=== PATIENT | male | born 1960 | race Caucasian/White ===

== ENCOUNTER 2016-07-29 08:10 | Day surgery (SDC) | payer MEDICAID ==
[2016-07-29] MEDS ORDERED: LR 1,000 ML IV ONE (08:22)
[2016-07-29] MEDS ORDERED: LIDOCAINE 1% 5 ML SDV ID PRN (08:22)
[2016-07-29] MEDS ORDERED: PROPOFOL/EMULSION 500 MG/50 ML BOTTLE IV ONE (09:39)
[2016-07-29] MEDS ORDERED: PROPOFOL 200 MG/20 ML VIAL ONE (09:57)
--- NOTE | 2016-08-01 15:54 | GPN ---
[f rep st] PROCEDURE NOTE DATE OF PROCEDURE: 07/29/2016 POSTPROCEDURE DIAGNOSIS: Colon polyp. PROCEDURE: Colonoscopy with biopsy, colonoscopy with snare. MEDICATIONS: Monitored anesthesia care. INDICATIONS: The patient is a 55-year-old gentleman presenting for screening colonoscopy. The risk s and benefits of the procedure were discussed with the patient and consent obtained. The risks inc lude, but are not limited to, bleeding, perforation, risks of anesthesia. The patient is ASA class 2. DESCRIPTION OF PROCEDURE: The adult colonoscope was advanced into the terminal ileum which appeared normal. The appendiceal orifice was normal. There was a 2 mm polyp in the cecum, which was remove d using cold biopsy forceps and sent off to pathology. The ascending colon showed a 4 mm polyp whic h was removed using cold snare and polypectomy and sent to pathology. The descending colon showed 3 polyps, ranging in size from 5-8 mm which were removed using cold snare and polypectomy. A single hemoclip was placed over the larger polypectomy site to prevent bleeding. In the sigmoid colon, the re was a 1 cm semipedunculated polyp, which was removed using cold snare. Two hemoclips were placed over the site to close the defect. Retroflexed views in the rectum were normal. IMPRESSION: Colon polyps, status post removal. RECOMMENDATION: 1. Discharge home with escort. 2. Advance diet as tolerated. 3. Followup pathology results. Results available within 10 days. 4. Repeat colonoscopy based on pathology results. If 3 or more polyps are found to be adenomatous, a repeat colonoscopy in 3 years is recommended or if the sigmoid colon polyp is found to be adenoma tous, a 3-year followup recommended. If more than 3 polyps are adenomatous, recommend a 5-year foll owup. Thank you for allowing me to participate in the care of your patient. Please do hesitate to call co th questions. /[id number]/MODL
== END 2016-07-29 11:34 | disposition home or self-care (01) ==
LOC: FSGY 08:10
PROVIDERS: ATTEND Internal Medicine Gastroenterology
PROC: 0DBM8ZX Excision of Descending Colon, Via Natural or Artificial Opening Endoscopic, Diagnostic (ICD-10-PCS; principal; 2016-07-29 10:15)
PROC: 0DBK8ZX Excision of Ascending Colon, Via Natural or Artificial Opening Endoscopic, Diagnostic (ICD-10-PCS; principal; 2016-07-29 10:15)
PROC: 0DBH8ZX Excision of Cecum, Via Natural or Artificial Opening Endoscopic, Diagnostic (ICD-10-PCS; principal; 2016-07-29 10:15)
PROC: 0DBN8ZX Excision of Sigmoid Colon, Via Natural or Artificial Opening Endoscopic, Diagnostic (ICD-10-PCS; principal; 2016-07-29 10:15)
PROC: 0DJD8ZZ Inspection of Lower Intestinal Tract, Via Natural or Artificial Opening Endoscopic (ICD-10-PCS; principal; 2016-07-29 10:15)
DX: Z12.11 Encounter for screening for malignant neoplasm of colon (principal); K63.5 Polyp of colon; D12.2 Benign neoplasm of ascending colon; D12.4 Benign neoplasm of descending colon; D12.5 Benign neoplasm of sigmoid colon; F32.9 Major depressive disorder, single episode, unspecified
CPT/HCPCS: J2704

== ENCOUNTER 2016-09-11 11:44 | Emergency (ER) | payer MEDICAID ==
[2016-09-11 12:05] VITALS: TEMP 98.8
[2016-09-11] MEDS ORDERED: OXYCODONE/APAP 5/325 TAB PO ONE (12:18)
--- NOTE | 2016-09-11 12:22 | EDPHY ---
H & P Stated Complaint: Twisted L knee yesterday. HPI/ROS: CHIEF COMPLAINT: Left knee pain HISTORY OF PRESENT ILLNESS: Patient was riding his horse yesterday when he fell off the left side of it. Describes this as approximately 4 foot high pony. He landed on his left leg awkwardly. He describes a valgus injury to the left knee. Sudden onset of pain in the medial left knee. No head neck injury. No loss of consciousness. No chest or back pain. No abdominal pain. No injury to the right leg greater either arm. Pain was mild to moderate REVIEW OF SYSTEMS: Ten systems reviewed and are negative unless otherwise noted in the HPI EXAMINATION General Appearance: Alert, no distress Cardiovascular: Pulses normal throughout. Symmetric DP and PT pulses. Brisk cap refill Neurological: A&O, sensory symmetric, strength symmetric. Normal proprioception great toe Skin: Warm and dry, no rash. No ecchymosis. Extremities: Left lower extremity: Tenderness and edema to the left knee. There is no ecchymosis. No laceration or abrasion. Range of motion is intact but painful. There is pain with valgus stress but no laxity. Negative drawer test. Neurovascular intact distal to the injury. Psychiatric: Mood and affect normal DIFFERENTIAL DIAGNOSES: Including but not limited to sprain, strain, fracture, dislocation, fracture dislocation MDM: 12:20 p.m. Acute sprain left knee. The pain is more medial than central. X-ray has been ordered. He is neurovascular intact distally ED Precautions: Worsening pain. Erythema, edema, cyanosis, pallor, paresthesia or anesthesia. SUPERVISION: This patient was independently evaluated without direct examination by the attending physician. Case was discussed with attending physician. Source: Patient Exam Limitations: No limitations - Personal History Current Tetanus Diphtheria and Acellular Pertussis (TDAP): Yes - Medical/Surgical History Hx Diabetes: No Other PMH: neg per pt - Social History Smoking Status: Current every day smoker Constitutional: Initial Vital Signs Temperature (C) 98.8 F 09/11/16 12:00 Heart Rate 98 09/11/16 12:00 Respiratory Rate 18 09/11/16 12:00 Blood Pressure 109/70 09/11/16 12:00 O2 Sat (%) 93 09/11/16 12:00 O2 Delivery Mode Room Air Allergies/Adverse Reactions: Penicillins Allergy (Verified 09/11/16 12:02) Swelling/neck,face,throat Home Medications: Medication Instructions Recorded Prozac 10 MG (*) 07/25/16 Hydrocodone/APAP 5/325 [[place] 1 - 2 tab PO Q4H PRN #10 tab 09/11/16 5/325 (*)] Medical Decision Making - Diagnostics Imaging Results: Imaging Impressions Knee X-Ray 09/11/16 12:12 Impression: Mild degenerative changes, with no acute osseous abnormality identified. If there is continuing clinical concern regarding the patient's knee pain, consider MR imaging. - Data Points Medications Given: Discontinued Medications Oxycodone/Acetaminophen (Percocet 5/325) 1 tab PO EDNOW ONE Stop: 09/11/16 12:19 Last Admin: 09/11/16 12:26 Dose: 1 tab Departure - Departure Disposition: Home, Routine, Self-Care Clinical Impression: Left knee sprain Qualifiers: Encounter type: initial encounter Involved ligament of knee: medial collateral ligament Qualified Code(s): S83.412A - Sprain of medial collateral ligament of left knee, initial encounter Condition: Good Instructions: Knee Sprain (ED) Additional Instructions: Weightbearing as tolerated. Artie wrap and crutches as needed. Follow up with primary care physician and orthopedist. Return to the ER for worsening pain, swelling, numbness or tingling Referrals: Joanne Karimi PAC [Primary Care Provider] - As per Instructions Amelia Chu MD [Medical Doctor] - As per Instructions Prescriptions: Hydrocodone/APAP 5/325 [[place] 5/325 (*)] 1 - 2 tab PO Q4H PRN #10 tab PRN Reason: Pain, Moderate
[2016-09-11 13:21] VITALS: BP 125/82; PULSE 101; RESP 16; O2SAT 92
== END 2016-09-11 13:21 | disposition home or self-care (01) ==
DX: S83.412A Sprain of medial collateral ligament of left knee, initial encounter (principal); F17.200 Nicotine dependence, unspecified, uncomplicated; V80.010A Animal-rider injured by fall from or being thrown from horse in noncollision accident, initial encounter; Y99.8 Other external cause status; Y93.52 Activity, horseback riding

== ENCOUNTER → 2016-10-05 | Outpatient (CLI) | payer MEDICAID | LOC: FIMAGING 11:01 | PROVIDERS: ATTEND Physician Assistant | DX: S83.512A Sprain of anterior cruciate ligament of left knee, initial encounter (principal); S83.529A Sprain of posterior cruciate ligament of unspecified knee, initial encounter; S83.412A Sprain of medial collateral ligament of left knee, initial encounter; M21.862 Other specified acquired deformities of left lower leg; S83.282A Other tear of lateral meniscus, current injury, left knee, initial encounter; M25.462 Effusion, left knee ==

== ENCOUNTER 2016-11-14 08:40 | Emergency (ER) | payer MEDICAID ==
[2016-11-14 08:57] VITALS: RESP 18
[2016-11-14] MEDS ORDERED: ONDANSETRON 4 MG/2 ML VIAL ONE (09:18)
[2016-11-14] MEDS ORDERED: LORazepam 2 MG/ML INJ ONE (09:18)
[2016-11-14] MEDS ORDERED: ONDANSETRON 4 MG/2 ML VIAL IVP ONE (09:25)
[2016-11-14] MEDS ORDERED: LORazepam 2 MG/ML INJ IVP ONE ×2 (09:25→11:06)
[2016-11-14] MEDS ORDERED: NS 1,000 ML IV ONE ×2 (09:25→11:06)
[2016-11-14 09:29] LABS: % IMMATURE GRANULYOCYTES 0.4 % (0.0-1.1); ABSOLUTE IMMATURE GRANULOCYTES 0.04 10^3/uL (0.00-0.10); ADD DIFF? NO; ADD MORPH? NO; ADD SCAN? NO; ATYPICAL LYMPHOCYTE FLAG 0 (0-99); FRAGMENT RBC FLAG 0 (0-99); HEMATOCRIT 45.1 % (40.0-51.0); LEFT SHIFT FLG 0 (0-99); LIPEMIA HEMOLYSIS FLAG 90 (0-99); MEAN CELL HEMOGLOBIN 33.1 pg (27.9-34.1); MEAN CELL HEMOGLOBIN CONCENTR. 35.5 g/dL (32.4-36.7); MEAN CELL VOLUME 93.4 fL (81.5-99.8); MEAN PLATELET VOLUME 11.1 fL (8.7-11.7); PLATELET CLUMPS FLAG 0 (0-99); PLATELET COUNT 145 10^3/uL (150-400); RED BLOOD CELL COUNT 4.83 10^6/uL (4.40-6.38); RED CELL DISTRIBUTION WIDTH 11.9 % (11.5-15.2)
--- NOTE | 2016-11-14 09:32 | CPEKG ---
Heart Rate: 89 RR Interval: 674 P-R Interval: 152 QRSD Interval: 84 QT Interval: 380 QTC Interval: 463 P [place]: 27 QRS [place]: -31 T Wave [place]: 37 EKG Severity - ABNORMAL ECG - EKG Impression: PACEMAKER SPIKES OR ARTIFACTS EKG Impression: SINUS RHYTHM EKG Impression: LEFT AXIS DEVIATION Electronically Signed By: Segundo Garner 17-Nov-2016 14:57:55
[2016-11-14 09:39] LABS: ALANINE AMINOTRANSFERASE 46 IU/L (21-72); ALBUMIN 4.7 g/dL (3.5-5.0); ALKALINE PHOSPHATASE 76 IU/L (38-126); ASPARTATE AMINOTRANSFERASE 46 IU/L (17-59); BILIRUBIN-CONJUGATED 0.3 mg/dL (0.0-0.5); BILIRUBIN-UNCONJUGATED 0.7 mg/dL (0.0-1.1); CALCIUM 9.8 mg/dL (8.5-10.4); CARBON DIOXIDE 16 mEq/l (22-31); CHLORIDE 103 mEq/L (97-110); GLOMERULAR FILTRATION RATE > 60; GLUCOSE 83 mg/dL (70-100); SODIUM 142 mEq/L (134-144); TOTAL PROTEIN 7.5 g/dL (6.3-8.2)
[2016-11-14 09:45] LABS: ANION GAP 23 mEq/L (8-16); POTASSIUM 3.9 mEq/L (3.5-5.2)
[2016-11-14 09:51] LABS: TROPONIN I < 0.012 ng/mL (0-0.034)
--- NOTE | 2016-11-14 10:02 | EDPHY ---
HPI/HX/ROS/PE/MDM Narrative: CHIEF COMPLAINT: Nausea, vomiting, shakiness. HISTORY OF PRESENT ILLNESS: This patient 56 year old male complaining of nausea, vomiting, and shakiness onset yesterday. He endorses chest tightness as well, constant and beginning around midnight. He states this pain is not increased with deep inspiration, and has not noted any specific provocation or palliation. He endorses subjective fever. He states he has been attempting to sip water, but has not taken medications for symptom prevention. He denies hematemesis, diarrhea, or abdominal pain. No history of heartburn, cardiac issues, abdominal surgeries, pancreatitis, or diabetes. No shortness of breath, palpitations, vomiting, urinary complaints, headache, lightheadedness. REVIEW OF SYSTEMS: Aside from elements discussed in the HPI, a comprehensive 10-point review of systems was reviewed and is negative. PAST MEDICAL HISTORY: Denies SOCIAL HISTORY: Former smoker, quit one month ago. Regular alcohol use. No illicit drug use. VITAL SIGNS: Reviewed by me GENERAL: Tremorous. Well-developed, well-nourished, resting comfortably in no respiratory distress. HEENT: Atraumatic. Eyes: No icterus, no injection. Mouth: tongue fasciculations. moist mucous membranes. No erythema or lesions. Neck: supple with no adenopathy. LUNGS: Clear to auscultation bilaterally, no wheezes, rhonchi or rales. CARDIAC: Regular rate and rhythm, no rubs, murmurs or gallops. ABDOMEN: No epigastric tenderness, no RLQ or RUQ tenderness. Soft, nontender, nondistended, bowel sounds normal. BACK: No CVA tenderness. EXTREMITIES: Swelling to posterior aspect of left forearm. No trauma. No edema. Range of motion is normal throughout. NEURO: Alert and oriented, grossly nonfocal. SKIN: Warm and dry, no rash. PSYCHIATRIC: Normal mentation, no agitation. Portions of this note were transcribed by a medical lab scientist. I personally performed a history, physical exam, medical decision making, and confirmed accuracy of information the transcribed note. ED Course: This patient is a 56 year old male presenting with one day history of nausea, vomiting, and shakiness. On exam, he is quite tremulous. Physical exam is unremarkable, notably no epigastric tenderness, right upper or lower abdominal tenderness. IV Established. Plan to administer 1L IV NS, 4mg IV Zofran, 1mg IV Ativan for symptom relief. Plan for chest x-ray, labs including CBC, BMP, Troponin, liver and lipase. Patient is dehydrated, anion gap 23. Chest x-ray shows no pneumothorax, consolidation, or effusion. Possible mild amount of atelectasis in the right lung base. Re-examination 11:00 a.m.: Patient reports the nausea has improved. His tremors have diminished although they are still present. He patient still has slight amount of tongue fasciculation. He believes this may be related to alcohol withdrawal. Patient received a 2nd L of normal saline as well as Librium and another dose of Ativan. Plan originally was to discharge to the to [facility]. However, after further treatment in the emergency department the patient reports feeling improved and wishes to be discharged home. I believe he is safe to be discharged. Patient's family is present and will accompany him to home. MDM: Differential diagnosis of the patient's nausea and vomiting was considered including but not limited to gastroenteritis, gastritis, alcohol intoxication, withdrawal symptoms, intraabdominal processes including appendicitis, pancreatitis, bowel obstruction and medication side effect. - Data Points Imaging: I viewed and interpreted images myself Laboratory Results: Laboratory Results 11/14/16 09:10 11/14/16 09:10 Medications Given: Discontinued Medications Chlordiazepoxide HCl (Librium) 25 mg PO EDNOW ONE Stop: 11/14/16 11:06 Last Admin: 11/14/16 11:20 Dose: 25 mg Sodium Chloride (Ns) 1,000 mls @ 0 mls/hr IV ONCE ONE PRN Reason: Wide Open Stop: 11/14/16 09:26 Last Admin: 11/14/16 09:26 Dose: 1,000 mls Sodium Chloride (Ns) 1,000 mls @ 0 mls/hr IV ONCE ONE; Wide Open PRN Reason: Protocol Stop: 11/14/16 11:07 Last Admin: 11/14/16 11:20 Dose: 1,000 mls Lorazepam (Ativan Injection) 1 mg IVP EDNOW ONE Stop: 11/14/16 09:26 Last Admin: 11/14/16 09:26 Dose: 1 mg Lorazepam (Ativan Injection) 1 mg IVP EDNOW ONE Stop: 11/14/16 11:07 Last Admin: 11/14/16 11:20 Dose: 1 mg Ondansetron HCl (Zofran) 4 mg IVP EDNOW ONE Stop: 11/14/16 09:26 Last Admin: 11/14/16 09:26 Dose: 4 mg General Time Seen by Provider: 11/14/16 09:02 Initial Vital Signs: Initial Vital Signs Temperature (C) 36.7 C 11/14/16 08:50 Heart Rate 100 11/14/16 08:50 Respiratory Rate 18 11/14/16 08:50 Blood Pressure 140/96 H 11/14/16 08:50 O2 Sat (%) 97 11/14/16 08:50 O2 Delivery Mode Room Air Allergies/Adverse Reactions: Penicillins Allergy (Severe, Verified 11/14/16 08:53) Swelling/neck,face,throat Home Medications: Medication Instructions Recorded Prozac 10 MG (*) 07/25/16 Ondansetron Odt [Zofran Odt 4 mg 4 mg PO Q6 PRN #8 tab 11/14/16 (RX)] Departure - Departure Disposition: Home, Routine, Self-Care Clinical Impression: Presumed alcohol withdrawal Nausea & vomiting Qualifiers: Vomiting type: unspecified Vomiting Intractability: non-intractable Qualified Code(s): R11.2 - Nausea with vomiting, unspecified Condition: Good Instructions: Acute Nausea and Vomiting (ED), Alcohol Withdrawal (ED) Additional Instructions: Please do not drink alcohol in excessive quantities. Some of your nausea and vomiting may be due to alcohol withdrawal. For your nausea and vomiting, I suggested you start with a bland diet and advance as tolerated. This means start with clear liquids such as water, Gatorade, juice, flat non- caffeinated soda. If you tolerate clear liquids, then you may add bland foods such as bananas, rice, or toast. If you do not have any worsening of your symptoms, you may begin to resume a regular diet. You may use Zofran as needed for recurrent nausea and vomiting. Please follow up with your primary care physician or seek care urgently if your symptoms are not improving as expected. Referrals: Joanne Karimi, PAC [Primary Care Provider] - As per Instructions Prescriptions: Ondansetron Odt [Zofran Odt 4 mg (RX)] 4 mg PO Q6 PRN #8 tab PRN Reason: Nausea Report Scribed for: Poornima Blankenship Report Scribed by: Kristie Haywood Date of Report: 11/14/16 Time of Report: 10:27
[2016-11-14] MEDS ORDERED: chlordiazePOXIDE 25 MG CAP PO ONE (11:05)
[2016-11-14 12:41] VITALS: BP 172/113; PULSE 98; TEMP 99; O2SAT 93
== END 2016-11-14 12:55 | disposition home or self-care (01) ==
DX: R11.2 Nausea with vomiting, unspecified (principal); Z87.891 Personal history of nicotine dependence
CPT/HCPCS: 96374; J2060; J2405

== ENCOUNTER 2017-01-27 07:50 | Emergency (ER) | payer MEDICAID ==
[2017-01-27 07:59] VITALS: TEMP 97.5
[2017-01-27] MEDS ORDERED: NS 1,000 ML IV ONE (08:32)
[2017-01-27] MEDS ORDERED: MAG HYDROX/AL HYDROX/SIMETH 30 ML UDCUP PO ONE (08:32)
[2017-01-27] MEDS ORDERED: HYOSCYAMINE SULFATE 0.125 MG TAB PO ONE (08:32)
[2017-01-27] MEDS ORDERED: LIDOCAINE 2% VISCOUS 15 ML UDCUP PO ONE (08:32)
[2017-01-27] MEDS ORDERED: ONDANSETRON 4 MG/2 ML VIAL IVP ONE (08:32)
[2017-01-27] MEDS ORDERED: FAMOTIDINE 20 MG/NACL 50 ML IV ONE (08:32)
[2017-01-27] MEDS ORDERED: IOPAMIDOL (ISOVUE-300) 100 ML BTL ONE (08:37)
--- NOTE | 2017-01-27 08:41 | EDPHY ---
H & P Stated Complaint: Epigastric pain Time Seen by Provider: 01/27/17 08:27 HPI/ROS: CHIEF COMPLAINT: Epigastric pain HISTORY OF PRESENT ILLNESS: Patient is a 56-year-old man who comes to the emergency department complaining of burning and pain for the last 4 weeks. It radiates to his back. He denies chest pain or shortness of breath but states that it is uncomfortable to to take deep breath because of his epigastric pain. The pain is been constant. He reports having a food poisoning episode 1 month ago that resulted in epigastric pain and black stools for about a week. He states that the black stool resolved but he still has the epigastric pain. He has been taking ibuprofen and Aleve to alleviate his pain. REVIEW OF SYSTEMS: Constitutional: denies: chills, fever, recent illness, recent injury EENTM: denies: blurred vision, double vision, nose congestion Respiratory: denies: cough, shortness of breath Cardiac: denies: chest pain, irregular heart rate, lightheadedness, palpitations Gastrointestinal/Abdominal: See HPI Genitourinary: denies: dysuria, frequency, hematuria, pain Musculoskeletal: denies: joint pain, muscle pain Skin: denies: lesions, rash, jaundice, bruising Neurological: denies: headache, numbness, paresthesia, tingling, dizziness, weakness Hematologic/Lymphatic: denies: blood clots, easy bleeding, easy bruising Immunologic/allergic: denies: HIV/AIDS, transplant EXAM: GENERAL: Well-appearing, overweight and in no acute distress. HEAD: Atraumatic, normocephalic. EYES: Pupils equal round and reactive to light, extraocular movements intact, sclera anicteric, conjunctiva are normal. ENT: TMs normal, nares patent, oropharynx clear without exudates. Moist mucous membranes. NECK: Normal range of motion, supple without lymphadenopathy or JVD. LUNGS: Breath sounds clear to auscultation bilaterally and equal. No wheezes rales or rhonchi. HEART: Regular rate and rhythm without murmurs, rubs or gallops. ABDOMEN: Soft, nontender, normoactive bowel sounds. No guarding, no rebound. No masses appreciated. BACK: No CVA tenderness, no spinal tenderness, step-offs or deformities EXTREMITIES: Normal range of motion, no pitting or edema. No clubbing or cyanosis. NEUROLOGICAL: Cranial nerves II through XII grossly intact. Normal speech, normal gait. 5/5 strength, normal movement in all extremities, normal sensation PSYCH: Normal mood, normal affect. SKIN: Warm, dry, normal turgor, no visible rashes or lesions. Source: Patient Exam Limitations: No limitations - Personal History Current Tetanus/Diphtheria Vaccine: Yes - Medical/Surgical History Hx Asthma: No Hx Chronic Respiratory Disease: No Hx Diabetes: No Hx Cardiac Disease: No Hx Renal Disease: No Hx Cirrhosis: No Hx Alcoholism: No Hx HIV/AIDS: No Hx Splenectomy or Spleen Trauma: No Other PMH: depression - Family History Significant Family History: No pertinent family hx - Social History Smoking Status: Current every day smoker Alcohol Use: Sober Drug Use: None Constitutional: Initial Vital Signs Temperature (C) 36.4 C 01/27/17 07:56 Heart Rate 74 01/27/17 07:56 Respiratory Rate 20 01/27/17 07:56 Blood Pressure 124/97 H 01/27/17 07:56 O2 Sat (%) 100 01/27/17 07:56 O2 Delivery Mode Room Air O2 (L/minute) 36.5 Allergies/Adverse Reactions: Penicillins Allergy (Severe, Verified 01/27/17 07:55) Swelling/neck,face,throat Home Medications: Medication Instructions Recorded Prozac 10 MG (*) 07/25/16 Ondansetron Odt [Zofran Odt 4 mg 4 mg PO Q6 PRN #8 tab 11/14/16 (RX)] Famotidine [Pepcid] 40 mg PO HS #30 tablet 01/27/17 Medical Decision Making - Diagnostics EKG Interpretation: An EKG obtained and was read and documented in trace view. Please see trace view for full reading and report. Sinus rhythm, no acute ischemic changes, nonspecific T-wave inversions ED Course/Re-evaluation: 10:55 a.m. The patient feels completely better after GI cocktail. We discussed the CT results which are reassuring. He states that he does not eat a lot a barbecue. He confirms he has not had any abdominal surgeries. He is not sure what the foreign body and his sigmoid may be. His troponin was not done. I will add that on. I will consult surgery about the possible foreign body. His repeat abdominal exam is benign. 10:56 a.m. I discussed the foreign body with Dr. Suzanna Santos who recommends follow-up in her office and to watch to see if it passes. Also possibly follow up with GI. 12:20 p.m. the patient continues to feel completely better. His troponin is negative. I will discharge him with an acids and follow-up. He agrees with this plan. Discussed indications for returning. Differential Diagnosis: Partial list of the Differential diagnosis considered include but were not limited to; peptic ulcer disease, acute coronary disease and although unlikely based on the history and physical exam, I also considered PE, arrhythmia, obstruction, ischemia. I discussed these differential diagnoses and the plan with the patient as well as the usual and expected course. The patient understands that the diagnosis is provisional and that in medicine we are not always correct and that further workup is often warranted. Usual and customary warnings were given. All of the patient's questions were answered. The patient was instructed to return to the emergency department should the symptoms at all worsen or return, otherwise to followup with the physician as we discussed. - Data Points Laboratory Results: Laboratory Results 01/27/17 08:40 01/27/17 08:40 Medications Given: Discontinued Medications Al Hydroxide/Mg Hydroxide (Maalox Susp) 30 ml PO ONCE ONE Stop: 01/27/17 08:33 Last Admin: 01/27/17 09:09 Dose: 30 ml Hyoscyamine Sulfate (Levsin, Hyomax-Sl) 0.25 mg PO ONCE ONE Stop: 01/27/17 08:33 Last Admin: 01/27/17 09:08 Dose: 0.25 mg Sodium Chloride (Ns) 1,000 mls @ 0 mls/hr IV EDNOW ONE; Wide Open PRN Reason: Protocol Stop: 01/27/17 08:33 Last Admin: 01/27/17 09:09 Dose: 1,000 mls Famotidine/Sodium Chloride (Pepcid 20 Mg (Premix)) 50 mls @ 200 mls/hr IV EDNOW ONE Stop: 01/27/17 08:46 Last Admin: 01/27/17 09:08 Dose: 50 mls Lidocaine (Lidocaine 2% Viscous) 15 ml PO ONCE ONE Stop: 01/27/17 08:33 Last Admin: 01/27/17 09:09 Dose: 15 ml Ondansetron HCl (Zofran) 4 mg IVP EDNOW ONE Stop: 01/27/17 08:33 Last Admin: 01/27/17 09:08 Dose: 4 mg Departure - Departure Disposition: Home, Routine, Self-Care Clinical Impression: Peptic ulcer disease Condition: Fair Instructions: Peptic Ulcer (ED), Epigastric Pain (ED) Referrals: Joanne Karimi PAC [Primary Care Provider] - As per Instructions Suzanna Santos MD [Medical Doctor] - As per Instructions Prescriptions: Famotidine [Pepcid] 40 mg PO HS #30 tablet
--- NOTE | 2017-01-27 08:44 | CPEKG ---
Heart Rate: 72 RR Interval: 833 P-R Interval: 152 QRSD Interval: 82 QT Interval: 400 QTC Interval: 438 P [place]: 21 QRS [place]: -26 T Wave [place]: 18 EKG Severity - OTHERWISE NORMAL ECG - EKG Impression: SINUS RHYTHM EKG Impression: BORDERLINE LEFT AXIS DEVIATION Electronically Signed By: Larry Duncan 27-Jan-2017 08:46:42
[2017-01-27 08:49] LABS: % IMMATURE GRANULYOCYTES 0.9 % (0.0-1.1); ABSOLUTE IMMATURE GRANULOCYTES 0.04 10^3/uL (0.00-0.10); ADD DIFF? NO; ADD MORPH? NO; ADD SCAN? NO; ATYPICAL LYMPHOCYTE FLAG 10 (0-99); FRAGMENT RBC FLAG 0 (0-99); LEFT SHIFT FLG 0 (0-99); LIPEMIA HEMOLYSIS FLAG 80 (0-99); MEAN CELL HEMOGLOBIN 32.7 pg (27.9-34.1); MEAN CELL HEMOGLOBIN CONCENTR. 33.3 g/dL (32.4-36.7); MEAN PLATELET VOLUME 11.1 fL (8.7-11.7); PLATELET CLUMPS FLAG 10 (0-99); PLATELET COUNT 175 10^3/uL (150-400); RED BLOOD CELL COUNT 3.98 10^6/uL (4.40-6.38); RED CELL DISTRIBUTION WIDTH 12.9 % (11.5-15.2)
[2017-01-27 09:03] LABS: APTT 26.9 SEC (23.0-38.0)
[2017-01-27 09:06] LABS: ALANINE AMINOTRANSFERASE 28 IU/L (21-72); ALKALINE PHOSPHATASE 55 IU/L (38-126); ANION GAP 12 mEq/L (8-16); ASPARTATE AMINOTRANSFERASE 22 IU/L (17-59); BILIRUBIN,TOTAL 0.7 mg/dL (0.1-1.4); BILIRUBIN-CONJUGATED 0.4 mg/dL (0.0-0.5); BILIRUBIN-UNCONJUGATED 0.3 mg/dL (0.0-1.1); CALCIUM 9.5 mg/dL (8.5-10.4); CARBON DIOXIDE 22 mEq/l (22-31); CHLORIDE 100 mEq/L (97-110); CREATININE 0.9 mg/dL (0.7-1.3); GLOMERULAR FILTRATION RATE > 60; GLUCOSE 100 mg/dL (70-100); POTASSIUM 4.3 mEq/L (3.5-5.2); SODIUM 134 mEq/L (134-144); TOTAL PROTEIN 6.7 g/dL (6.3-8.2)
[2017-01-27 09:12] LABS: INR 0.96 (0.83-1.16); PROTIME(PATIENT) 12.7 SEC (12.0-15.0)
[2017-01-27 11:14] LABS: COLOR PALE YELLOW; LEUKOCYTE ESTERASE,URINE NEGATIVE (NEGATIVE); NITRITE,URINE NEGATIVE (NEGATIVE)
[2017-01-27 11:21] LABS: RBC,URINE NONE SEEN /hpf (0-3); WBC,URINE NONE SEEN /hpf (0-3)
[2017-01-27 13:19] VITALS: BP 103/70; PULSE 68; RESP 16; O2SAT 96
== END 2017-01-27 13:30 | disposition home or self-care (01) ==
DX: K27.9 Peptic ulcer, site unspecified, unspecified as acute or chronic, without hemorrhage or perforation (principal); F17.200 Nicotine dependence, unspecified, uncomplicated; E86.9 Volume depletion, unspecified
CPT/HCPCS: 96365; J2405; Q9967

== ENCOUNTER 2017-02-17 09:49 | Day surgery (SDC) | payer MEDICAID ==
--- NOTE | 2017-02-17 11:46 | PDANEPAE ---
ANE History of Present Illness GERD ANE Past Medical History - Cardiovascular History Hx Hypertension: No Hx Arrhythmias: No Hx Chest Pain: No Hx Coronary Artery / Peripheral Vascular Disease: No Hx CHF / Valvular Disease: No Hx Palpitations: No - Pulmonary History Hx COPD: No Hx Asthma/Reactive Airway Disease: No Hx Recent Upper Respiratory Infection: No Hx Oxygen in Use at Home: No Hx Sleep Apnea: No Sleep Apnea Screening Result - Last Documented: Negative - Neurologic History Hx Cerebrovascular Accident: No Hx Seizures: No Hx Dementia: No - Endocrine History Hx Diabetes: No - Renal History Hx Renal Disorders: No - Liver History Hx Hepatic Disorders: No - Neurological & Psychiatric Hx Hx Neurological and Psychiatric Disorders: Yes Neurological / Psychiatric History Comment: depression - Cancer History Hx Cancer: No - Congenital Disorder History Hx Congenital Disorders: No - GI History Hx Gastrointestinal Disorders: No - Other Health History Other Health History: upper partial plate - Chronic Pain History Chronic Pain: No - Surgical History Prior Surgeries: COLONOSCOPY. left knee surgery- scope. ANE Review of Systems Review of Systems: - Exercise capacity METS (RN): 5 METS ANE Patient History - Allergies Allergies/Adverse Reactions: Penicillins Allergy (Severe, Verified 01/27/17 07:55) Swelling/neck,face,throat - Home Medications Home Medications: Prozac 10 MG (*) 07/25/16 [Last Taken 2 Days Ago ~07/27/16] - Smoking Hx Smoking Status: Former smoker - Family Anes Hx Family Hx Anesthesia Complications: none ANE Labs/Vital Signs - Vital Signs Height: 165.1 cm Weight: 90.718 kg ANE Physical Exam - Airway Neck exam: FROM Mallampati Score: Class 1 Mouth exam: poor dentition - Pulmonary Pulmonary: no respiratory distress - Cardiovascular Cardiovascular: regular rate and rhythym - ASA Status ASA Status: II ANE Anesthesia Plan Total IV Anesthesia: Yes
[2017-02-17] MEDS ORDERED: LR 1,000 ML IV ONE (11:52)
--- NOTE | 2017-02-17 12:26 | PDGENHP ---
History & Physical Chief Complaint: Melena and abnormal GI tract imaging Relevant Physical Exam: GEN: NAD. Cardiac: RRR. Lungs: CTA B. Abd: Soft, nt, nd
[2017-02-17] MEDS ORDERED: NALOXONE HCL 0.4 MG/ML INJ IVP PRN (12:48)
--- NOTE | 2017-02-17 13:09 | GIREPORT ---
[facility] Surgical Services - Endoscopy Department Patient Name: Yinka Nieves Procedure Date: 02/17/2017 12:37 PM Patient Type: Outpatient Attending MD/ ER Physician: Diogo Pinto MD Procedure: Upper GI endoscopy Indications: Melena, Hx of NSAID use. Providers: Diogo Pinto MD Medicines: Monitored Anesthesia Care Complications: No immediate complications. Description of Procedure: After obtaining informed consent, the endoscope was passed under direct vision. Throughout the procedure, the patient's blood pressure, pulse, and oxygen saturations were monitored continuous ly. The Endoscope was introduced through the mouth, and advanced to the second part of duodenum. The upper GI endoscopy was accomplished without difficulty. The patient tolerated the procedure well . Findings: The Z-line was irregular and was found 38 cm from the incisors. Biopsies were taken with a cold forceps for histology. Verification of patient identification for the specimen was done by the physician and nurse using the patient's name and date. Estimated blood loss was minimal. Localized mild inflammation characterized by congestion (edema), erythema and friability was fou nd in the gastric antrum. Biopsies were taken with a cold forceps for histology. Verification of patie nt identification for the specimen was done by the physician and nurse using the patient's name and date. Estimated blood loss was minimal. One cratered duodenal ulcer with no stigmata of bleeding was found in the duodenal bulb. The les ion was 6 mm in largest dimension. Biopsies were taken with a cold forceps for histology. Verificati on of patient identification for the specimen was done by the physician and nurse using the patient's name and date. Estimated blood loss was minimal. Estimated Blood Loss: Estimated blood loss: none. Post Op Diagnosis: - Z-line irregular, 38 cm from the incisors. Biopsied. - Gastritis. Biopsied. - One duodenal ulcer with no stigmata of bleeding. Biopsied. Recommendation: - Discharge patient to home (with escort). - Resume previous diet. - Use Prilosec (omeprazole) 20 mg PO BID for 2 months. - Avoidance of NSAIDS. - Await pathology results. Results are available within 10 days. - Thank you for allowing me to participate in the care of your patient. Attending Participation: I personally performed the entire procedure. Dioog Pinto MD Diogo Pinto MD 02/17/2017 1:08:34 PM Number of Addenda: 0 Note Initiated On: 02/17/2017 12:37 PM [email or web address]
--- NOTE | 2017-02-17 13:13 | POSTANESTH ---
Post Anesthetic Evaluation Cardiovascular Status: Normal, Stable Respiratory Status: Normal, Stable Level of Consciousness/Mental Status: Can Participate in Eval Pain Control: Adequate, Prn Tx Ordered Nausea/Vomiting Control: Adequate, Prn Tx Ordered Complications Possibly Related to Anesthesia: None Noted
--- NOTE | 2017-02-17 13:14 | GIREPORT ---
[facility] Surgical Services - Endoscopy Department Patient Name: Yinka Nieves Procedure Date: 02/17/2017 12:51 PM Patient Type: Outpatient Attending MD/ ER Physician: Diogo Pinto MD Procedure: Colonoscopy Indications: Abnormal CT of the GI tract. Possible wire in the sigmoid vs hemoclip? Last colon was 07/2016. Providers: Diogo Pinto MD Medicines: Monitored Anesthesia Care Complications: No immediate complications. Description of Procedure: After obtaining informed consent, the scope was passed under direct vision. Throughout the proce dure, the patient's blood pressure, pulse, and oxygen saturations were monitored continuously. The Colonoscope was introduced through the anus and advanced to the terminal ileum, with identificat ion of the appendiceal orifice and IC valve. The colonoscopy was performed without difficulty. The patient tolerated the procedure well. The quality of the bowel preparation was good. Findings: The perianal and digital rectal examinations were normal. The terminal ileum appeared normal. A 8 mm polyp was found in the ascending colon. The polyp was sessile. The polyp was removed with a hot snare. Resection and retrieval were complete. Verification of patient identification for the specimen was done by the physician and nurse using the patient's name and date. Estimated blood loss was minimal. A single hemoclip was seen in the sigmoid colon (placed during the previous colonoscopy). Many small-mouthed diverticula were found in the sigmoid colon, descending colon and ascending c olon. The retroflexed view of the distal rectum and anal verge was normal and showed no anal or rectal abnormalities. Estimated Blood Loss: Estimated blood loss: none. Post Op Diagnosis: - The examined portion of the ileum was normal. - One 8 mm polyp in the ascending colon, removed with a hot snare. Rese cted and retrieved. - Hemoclip found in the sigmoid colon. - Diverticulosis in the sigmoid colon, in the descending colon and in t he ascending colon. - The distal rectum and anal verge are normal on retroflexion view. Recommendation: - Discharge patient to home (with escort). - High fiber diet. - Continue present medications. - Repeat colonoscopy in 3 years for surveillance. - Await pathology results. Results are available within 10 days. - Thank you for allowing me to participate in the care of your patient. Attending Participation: I personally performed the entire procedure. Diogo Pinto MD Diogo Pinto MD 02/17/2017 1:13:53 PM Number of Addenda: 0 Note Initiated On: 02/17/2017 12:51 PM [email or web address]
[2017-02-17 13:27] VITALS: TEMP 97.5
[2017-02-17 14:17] VITALS: PULSE 56
[2017-02-17 15:00] VITALS: BP 119/80; O2SAT 98
[2017-02-17 17:59] VITALS: RESP 16
== END 2017-02-17 14:59 | disposition home or self-care (01) ==
LOC: FSGY 09:49
PROVIDERS: ATTEND Internal Medicine Gastroenterology
PROC: 0DBK8ZX Excision of Ascending Colon, Via Natural or Artificial Opening Endoscopic, Diagnostic (ICD-10-PCS; principal; 2017-02-17 12:00)
PROC: 0DB98ZX Excision of Duodenum, Via Natural or Artificial Opening Endoscopic, Diagnostic (ICD-10-PCS; 2017-02-17 12:00)
PROC: 0DB68ZX Excision of Stomach, Via Natural or Artificial Opening Endoscopic, Diagnostic (ICD-10-PCS; 2017-02-17 12:00)
DX: D12.2 Benign neoplasm of ascending colon (principal); K22.70 Barrett's esophagus without dysplasia; K29.50 Unspecified chronic gastritis without bleeding; K57.30 Diverticulosis of large intestine without perforation or abscess without bleeding; B96.81 Helicobacter pylori [H. pylori] as the cause of diseases classified elsewhere

== ENCOUNTER → 2018-02-05 | Outpatient (CLI) | payer MEDICAID | LOC: FCPNEURO 20:00 | PROVIDERS: ATTEND Internal Medicine Sleep Medicine | DX: G47.33 Obstructive sleep apnea (adult) (pediatric) (principal) ==